=== PATIENT | female | born 1955 | race Caucasian/White ===

== ENCOUNTER → 2021-07-05 | Outpatient (CLI) | payer MEDICARE ==
[~2021-07-05] MED LIST: ABILIFY10 MG PO; AMITRIPTYLINE100 MG PO; BUPRENORPHIN-N1 EACH SL; CYMBALTA60 MG PO; FEOSOL325 MG PO; GABAPENTIN800 MG PO; KADIAN30 MG PO; PANTOPRAZOLE SO40 MG PO; PROZAC40 MG PO; SUMATRIPTAN SUC25 MG PO
== END ==
LOC: KOH-I 11:14
DX: M25.561 Pain in right knee (principal); M25.562 Pain in left knee; M17.0 Bilateral primary osteoarthritis of knee
CPT/HCPCS: 73562